=== PATIENT | female | born 1965 | race African-American/Black ===

== ENCOUNTER 2017-07-31 08:39 | Emergency (ER) | payer MEDICAID ==
[~2017-07-31] VITALS: Ht 157.5 cm; Wt 90.5 kg
[2017-07-31] MEDS ORDERED: ONDANSETRON HCL 4MG/2ML VIAL IV ONE (09:45)
[2017-07-31] MEDS ORDERED: MORPHINE SULFATE 4 MG/ML CPJ (NOT FOR IM USE) IV ONE (09:45)
[2017-07-31 09:51] VITALS: BP 146/79
[2017-07-31 10:08] LABS: HEMATOCRIT. 35.1 % (36.0-48.0); HEMOGLOBIN. 11.4 g/dL (12.0-16.0); MEAN CORPUSCULAR HEMOGLOBIN 22.2 pg (28.0-32.0); MEAN CORPUSCULAR VOLUME 68.6 fL (81.0-99.0); PLATELET 319 x1000/uL (130-400); RED BLOOD CELL COUNT 5.12 mill/uL (4.2-5.4); RED CELL DISTRIBUTION WIDTH 18.9 % (11.6-14.6)
[2017-07-31 10:14] LABS: CHLORIDE 102 mEq/L (98-107)
[2017-07-31 10:23] LABS: CARBON DIOXIDE 29 mEq/L (21-32)
[2017-07-31 10:31] LABS: INR 1.1; PARTIAL THROMBOPLASTIN TIME 24.5 sec (23.4-31.0); PROTHROMBIN TIME 11.1 sec (9.4-11.6)
[2017-07-31 10:33] LABS: PLATELET ESTIMATE NORMAL
== END 2017-07-31 15:20 | disposition home or self-care (01) ==
LOC: ER 11:37
DX: R53.1 Weakness (principal); R10.31 Right lower quadrant pain; R11.2 Nausea with vomiting, unspecified; Z88.8 Allergy status to other drugs, medicaments and biological substances
CPT/HCPCS: 36415; 74176; 80053; 83690; 85025; 85610; 85730; 96374; 96375; 99285; J2270; J2405

== ENCOUNTER 2017-11-16 10:56 | Emergency (ER) | payer MEDICAID ==
[~2017-11-16] VITALS: Ht 152.4 cm; Wt 86.0 kg
[2017-11-16] MEDS ORDERED: SODIUM CHLORIDE 0.9% 500 ML IV ONE (12:12)
[2017-11-16] MEDS ORDERED: ONDANSETRON HCL 4MG/2ML VIAL IV ONE (12:15)
[2017-11-16] MEDS ORDERED: MORPHINE SULFATE 10 MG/ML CPJ IV ONE (12:15)
[2017-11-16 12:16] LABS: BASOPHILS % 0.2 % (0.0-2.0); EOSINOPHILS % 0.3 % (0.0-5.0); HEMATOCRIT. 39.6 % (36.0-48.0); HEMOGLOBIN. 12.6 g/dL (12.0-16.0); MEAN CORPUSCULAR VOLUME 71.9 fL (81.0-99.0); MEAN PLATELET VOLUME 7.2 fl (7.4-10.4); MONOCYTES % 11.4 % (2.0-8.0); NEUTROPHILS % 46.1 % (40.0-76.0); PLATELET 311 x1000/uL (130-400); RED CELL DISTRIBUTION WIDTH 19.3 % (11.6-14.6)
[2017-11-16 12:22] LABS: INR 1.1; PARTIAL THROMBOPLASTIN TIME 23.7 sec (23.4-31.0); PROTHROMBIN TIME 11.2 sec (9.4-11.6)
[2017-11-16 12:29] LABS: CARBON DIOXIDE 26 mEq/L (21-32); CHLORIDE 101 mEq/L (98-107); CREATINE KINASE 212 IU/L (26-192)
[2017-11-16 12:30] LABS: TROPONIN I < 0.02 ng/mL (0.00-0.04)
[2017-11-16 12:35] LABS: CREATINE KINASE MB FRACTION < 0.5 ng/mL (0.5-3.6)
[2017-11-16 14:58] VITALS: BP 119/73
[2017-11-20] MEDS ORDERED: MECL-109 PO (12:01)
[2017-11-20] MEDS ORDERED: DIPH25CA83 PO (12:01)
[2017-11-20] MEDS ORDERED: METO-293 PO (12:01)
== END 2017-11-16 15:01 | disposition home or self-care (01) ==
LOC: ER 11:25
DX: G43.909 Migraine, unspecified, not intractable, without status migrainosus (principal); R73.9 Hyperglycemia, unspecified; R07.89 Other chest pain; I10 Essential (primary) hypertension; Z91.041 Radiographic dye allergy status
CPT/HCPCS: 36415; 70450; 71010; 80053; 82550; 82553; 83690; 83880; 84443; 84484; 85025; 85610; 85730; 93005; 96361; 96374; 96375; 99285; J2270; J2405; J7040

== ENCOUNTER 2020-01-19 10:58 | Emergency (ER) | payer MEDICAID ==
[~2020-01-19] VITALS: Ht 162.6 cm; Wt 78.0 kg
[~2020-01-19 10:58] MED LIST: DIPH25CA83 PO; MECL-159 PO; METO-293 PO
[2020-01-19 11:54] VITALS: BP 150/92
[2020-01-19] MEDS ORDERED: KETOROLAC 60MG/2ML VIAL IM STA (13:02)
== END 2020-01-19 13:48 | disposition home or self-care (01) ==
LOC: ER 10:58
DX: M25.531 Pain in right wrist (principal); M79.631 Pain in right forearm; Z79.899 Other long term (current) drug therapy; Z88.5 Allergy status to narcotic agent; Z91.041 Radiographic dye allergy status
CPT/HCPCS: 73090; 96372; 99283; J1885